=== PATIENT | female | born 1985 | race Caucasian/White ===

== ENCOUNTER 2016-09-13 19:51 | Emergency (ER) | payer OTHER ==
[2016-09-13 21:29] VITALS: BP 147/89
== END 2016-09-13 21:29 | disposition home or self-care (01) ==
LOC: ED 19:51
DX: R21 Rash and other nonspecific skin eruption (principal); H91.90 Unspecified hearing loss, unspecified ear
CPT/HCPCS: J7512; Q0163

== ENCOUNTER 2017-01-17 19:58 | Emergency (ER) | payer OTHER ==
[2017-01-17 21:48] VITALS: BP 184/88
== END 2017-01-17 21:48 | disposition home or self-care (01) ==
LOC: ED 19:58
DX: S00.551A Superficial foreign body of lip, initial encounter (principal); I10 Essential (primary) hypertension; E07.9 Disorder of thyroid, unspecified; E28.2 Polycystic ovarian syndrome; F31.9 Bipolar disorder, unspecified; F23 Brief psychotic disorder; Z88.5 Allergy status to narcotic agent; Z88.2 Allergy status to sulfonamides; Z88.8 Allergy status to other drugs, medicaments and biological substances; X58.XXXA Exposure to other specified factors, initial encounter; Y93.89 Activity, other specified; Y99.8 Other external cause status; Y92.89 Other specified places as the place of occurrence of the external cause
CPT/HCPCS: J2001

== ENCOUNTER 2017-02-05 19:16 | Emergency (ER) | payer OTHER ==
[2017-02-06 00:11] LABS: BASOPHIL % 0.4 % (0-2); PLATELET COUNT 333 x10^3mcL (130-400)
[2017-02-06 00:12] LABS: RED CELL DISTRIBUTION WIDTH 16.5 % (11.5-14.5)
[2017-02-06 00:26] LABS: CALCIUM 9.2 mg/dL (8.5-10.1); CARBON DIOXIDE 26.1 mmol/L (21-32); CHLORIDE SERUM 104 mmol/L (98-107); CREATININE SERUM 0.9 mg/dL (0.6-1.0); GFR1 > 60 mL/min; GLUCOSE SERUM 117 mg/dL (74-106); POTASSIUM SERUM 3.6 mmol/L (3.5-5.1); SODIUM SERUM 139 mmol/L (136-145)
[2017-02-06 00:31] LABS: ALKALINE PHOSPHATASE 127 U/L (46-116); ALT/SGPT 27 U/L (14-59); AMYLASE 33 U/L (25-115); AST/SGOT 17 U/L (15-37); BILIRUBIN TOTAL 0.2 mg/dL (0.20-1.00); CHOLESTEROL 158 mg/dL (<200); HDL CHOLESTEROL 44 mg/dL (40-60); LIPASE 142 IU/L (73-393); TOTAL PROTEIN, SERUM 7.7 g/dL (6.4-8.2)
[2017-02-06 00:34] LABS: ALBUMIN 3.3 g/dL (3.4-5.0)
[2017-02-06 01:35] VITALS: BP 135/74
== END 2017-02-06 01:35 | disposition home or self-care (01) ==
LOC: ED 19:16
PROVIDERS: Emergency Medicine
DX: F41.0 Panic disorder [episodic paroxysmal anxiety] (principal); H91.90 Unspecified hearing loss, unspecified ear; J45.909 Unspecified asthma, uncomplicated; I10 Essential (primary) hypertension; E03.9 Hypothyroidism, unspecified; E46 Unspecified protein-calorie malnutrition; D64.9 Anemia, unspecified; E66.01 Morbid (severe) obesity due to excess calories; F20.9 Schizophrenia, unspecified; F31.9 Bipolar disorder, unspecified; Z88.2 Allergy status to sulfonamides; Z88.5 Allergy status to narcotic agent
CPT/HCPCS: 83880; J2060

== ENCOUNTER 2017-09-02 15:17 | Emergency (ER) | payer OTHER ==
[~2017-09-02] VITALS: Ht 160 cm; Wt 169.2 kg
[2017-09-02 15:37] VITALS: BP 138/101
[2017-09-03] MEDS ORDERED: EFFEXOR-XR150 MG PO (19:54)
[2017-09-03] MEDS ORDERED: [UNRECOGNIZED DRUG - CODE] PO (19:54)
[2017-09-03] MEDS ORDERED: PRILOSEC OTC20 M1 PO (19:56)
[2017-09-03] MEDS ORDERED: SYNTHROID0.075 MG PO (19:56)
[2017-09-03] MEDS ORDERED: KLO1 PO (19:56)
[2017-09-03] MEDS ORDERED: RISPERDAL2 M1 PO (19:56)
[2017-09-03] MEDS ORDERED: ATROVENT H0.017 MG/1 INH (19:57)
[2017-09-03] MEDS ORDERED: SEROQUEL200 MG PO (19:57)
[2017-09-03] MEDS ORDERED: TOPAMAX100 MG PO (19:57)
== END 2017-09-02 17:16 | disposition home or self-care (01) ==
LOC: ED 15:17
DX: S63.616A Unspecified sprain of right little finger, initial encounter (principal); W22.8XXA Striking against or struck by other objects, initial encounter; I10 Essential (primary) hypertension; D64.9 Anemia, unspecified; Z88.2 Allergy status to sulfonamides; Z88.5 Allergy status to narcotic agent; Y93.89 Activity, other specified; Y92.89 Other specified places as the place of occurrence of the external cause; Y99.8 Other external cause status

== ENCOUNTER 2017-09-03 18:35 | Inpatient (IN) | payer OTHER ==
[~2017-09-03] VITALS: Ht 160 cm; Wt 169.7 kg
[2017-09-03 19:41] LABS: BASOPHIL % 0.3 % (0-2); PLATELET COUNT 320 x10^3mcL (130-400)
[2017-09-03 19:46] LABS: CALCIUM 9.6 mg/dL (8.5-10.1); CARBON DIOXIDE 27.6 mmol/L (21-32); CHLORIDE SERUM 101 mmol/L (98-107); CREATININE SERUM 0.8 mg/dL (0.6-1.0); GFR1 > 60 mL/min; GLUCOSE SERUM 98 mg/dL (74-106); POTASSIUM SERUM 3.5 mmol/L (3.5-5.1); SODIUM SERUM 137 mmol/L (136-145)
[2017-09-03 19:47] LABS: RED CELL DISTRIBUTION WIDTH 20.3 % (11.5-14.5)
[2017-09-03 19:50] LABS: ALKALINE PHOSPHATASE 115 U/L (46-116); ALT/SGPT 19 U/L (14-59); AST/SGOT 14 U/L (15-37); TOTAL PROTEIN, SERUM 7.4 g/dL (6.4-8.2)
[2017-09-03 19:51] LABS: ALBUMIN 3.2 g/dL (3.4-5.0)
[2017-09-03] MEDS ORDERED: [UNRECOGNIZED DRUG - CODE] PO (19:54)
[2017-09-03] MEDS ORDERED: EFFEXOR-XR150 MG PO (19:54)
[2017-09-03] MEDS ORDERED: SYNTHROID0.075 MG PO (19:56)
[2017-09-03] MEDS ORDERED: PRILOSEC OTC20 M1 PO (19:56)
[2017-09-03] MEDS ORDERED: KLO1 PO (19:56)
[2017-09-03] MEDS ORDERED: RISPERDAL2 M1 PO (19:56)
[2017-09-03] MEDS ORDERED: TOPAMAX100 MG PO (19:57)
[2017-09-03] MEDS ORDERED: SEROQUEL200 MG PO (19:57)
[2017-09-03] MEDS ORDERED: ATROVENT H0.017 MG/1 INH (19:57)
[2017-09-03 20:03] LABS: urine erythrocyte NEGATIVE (NEGATIVE)
[2017-09-03 20:15] LABS: microscopic required? YES
[2017-09-03 20:21] LABS: rbc morphology (normal/abnorm) ABNORMAL (NORMAL)
[2017-09-03 20:23] LABS: AMPHETAMINE QUAL UR NONE DETECTED (NEG <=1000)
[2017-09-03 20:27] LABS: T3 TOTAL 1.06 ng/mL
[2017-09-03 20:40] LABS: FREE T4 0.82 ng/dL (0.76-1.46); FREE THYROXINE INDEX 1.6 ug/dL (1.4-4.5); T4(THYROXINE) 5.6 ug/dL (4.7-13.3)
[2017-09-03 20:46] LABS: CHOLESTEROL/HDL RATIO 3.3; MAGNESIUM 1.7 mg/dL (1.8-2.4); PHOSPHOROUS 3.1 mg/dL (2.5-4.9)
[2017-09-03 21:06] VITALS: BP 112/49
[2017-09-03 21:40] LABS: TOTAL IRON BINDING CAPACITY 324 ug/dL (250-450)
[2017-09-03 21:41] LABS: IRON 22 ug/dL (50-170)
[2017-09-03 22:00] LABS: RED BLOOD CELLS 4.41 M/mm3 (4.10-5.10)
[2017-09-04 05:40] VITALS: BP 107/58
[2017-09-04 09:30] VITALS: BP 119/71
[2017-09-04 10:21] LABS: BASOPHIL % 0.2 % (0-2); PLATELET COUNT 269 x10^3mcL (130-400)
[2017-09-04] MEDS ORDERED: ZITHROMAX TRI-500 MG PO (10:42)
[2017-09-04] MEDS ORDERED: LAC PO (10:43)
[2017-09-04 10:56] LABS: RED CELL DISTRIBUTION WIDTH 20.7 % (11.5-14.5)
[2017-09-04 10:57] LABS: rbc morphology (normal/abnorm) ABNORMAL (NORMAL)
[2017-09-04 11:16] VITALS: BP 119/71
[2017-09-04] MEDS ORDERED: MEDDP PO (11:26)
[2017-09-04] MEDS ORDERED: METFORMIN HYDR500 M1 PO (12:04)
[2017-09-04 13:50] LABS: CALCIUM 8.8 mg/dL (8.5-10.1); CARBON DIOXIDE 27.5 mmol/L (21-32); CHLORIDE SERUM 103 mmol/L (98-107); CREATININE SERUM 0.7 mg/dL (0.6-1.0); GFR1 > 60 mL/min; GLUCOSE SERUM 138 mg/dL (74-106); POTASSIUM SERUM 4.1 mmol/L (3.5-5.1); SODIUM SERUM 138 mmol/L (136-145)
== END 2017-09-04 13:05 | disposition home or self-care (01) | DRG 137 ==
LOC: ED 18:35 → DU 19:44
PROVIDERS: Emergency Medicine; Family Medicine
DX: J69.0 Pneumonitis due to inhalation of food and vomit (principal); E43 Unspecified severe protein-calorie malnutrition; E11.65 Type 2 diabetes mellitus with hyperglycemia; E83.42 Hypomagnesemia; J45.901 Unspecified asthma with (acute) exacerbation; Z68.44 Body mass index [BMI] 60.0-69.9, adult; M94.0 Chondrocostal junction syndrome [Tietze]; F32.9 Major depressive disorder, single episode, unspecified; H91.90 Unspecified hearing loss, unspecified ear; G89.29 Other chronic pain; M25.511 Pain in right shoulder; M25.552 Pain in left hip; E03.9 Hypothyroidism, unspecified; D50.9 Iron deficiency anemia, unspecified; E66.01 Morbid (severe) obesity due to excess calories; M21.372 Foot drop, left foot; G40.909 Epilepsy, unspecified, not intractable, without status epilepticus; E86.0 Dehydration; F20.9 Schizophrenia, unspecified; F42.9 Obsessive-compulsive disorder, unspecified; K58.2 Mixed irritable bowel syndrome; Z88.5 Allergy status to narcotic agent; Z88.2 Allergy status to sulfonamides; Z88.8 Allergy status to other drugs, medicaments and biological substances; Z80.3 Family history of malignant neoplasm of breast; Z80.59 Family history of malignant neoplasm of other urinary tract organ; Z80.0 Family history of malignant neoplasm of digestive organs; Z82.5 Family history of asthma and other chronic lower respiratory diseases; I69.398 Other sequelae of cerebral infarction
CPT/HCPCS: 82962; 83880; 84439; 87804; 94150; J1956; J3010; J3490; J7030; J7613; J7620; J7644; Q0092